=== PATIENT | male | born 1955 | race Caucasian/White ===

== ENCOUNTER 2017-10-22 12:18 | Emergency (ER) | payer OTHER ==
[~2017-10-22 12:18] MED LIST: ALF10 PO; AMI25 PO; ATE50 PO; ATEN50TA36 PO; ATOR40TA24 PO; CHOL10005 PO; DIPH-618 PO; DOCU100T13 PO; DULO60CA51 PO; DULO60CA56 PO; GABA-549 PO; GEM600 PO; IBUP600T22 PO; LAMO100T52 PO; LOR5 PO; LOR5/325 PO; LORA-630 PO; MELO-150 PO; METO-253 PO; MIRT-25 PO; MULT-820 PO; OMEG-23 PO; OMEP-137 PO; ONDA4TAB PO; OXYC5TAB38 PO; PAN40 PO; PRE50 PO; TRIA-102 PO; TRIA-20 PO; TRIA1CAP85 PO; [UNRECOGNIZED DRUG - CODE]
--- NOTE | 2017-10-22 12:35 | ER Report ---
History and Physical Time Seen By MD: 12:24 Hx. of Stated Complaint: PT LEAVING PHYSICAL THERAPY FELL BACKWARD AND HIT HEAD ON CURB, NO LOC HPI/ROS CHIEF COMPLAINT: Fall HISTORY OF PRESENT ILLNESS: His is a 61-year-old male who was in the parking lot of the hospital and fell down hitting the back of his head. 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 He had just put his walker in the back of his car stepped backwards and fell backwards hitting the back of his head. Patient denies loss of consciousness. Denies C-spine pain. Patient states he did get up by himself but a bystander did come and assist. One of the nursing staff from the cancer Center assisted him to the emergency department. Patient arrives alert and oriented, no chest pain or shortness of breath. Patient does have a headache and a large hematoma to the posterior scalp. No nausea or vomiting. REVIEW OF SYSTEMS: Constitutional: No fever, no chills. Eyes: No discharge. ENT: No sore throat. Cardiovascular: No chest pain, no palpitations. Respiratory: No cough, no shortness of breath. Gastrointestinal: No abdominal pain, no vomiting. Genitourinary: No hematuria. Musculoskeletal: No back pain. Skin: As above. Neurological: As above. Allergies: Coded Allergies: Penicillins (Verified Allergy, Mild, 07/06/16) Influenza Virus Vaccines (Verified Adverse Reaction, Unknown, GUINNE BARRE , 07/06/16) Home Meds Reported Medications Acetaminophen (TYLENOL EXTRA STRENGTH) 500 Mg Tablet, 500 MG PO, TAB 10/22/17 Metoprolol Tartrate (METOPROLOL TARTRATE) 50 Mg Tab, 1 TAB PO BID, TAB 07/06/16 Omeprazole (OMEPRAZOLE) 20 Mg Tablet.dr, 40 MG PO QDAY, TAB 07/06/16 Multivitamin (MULTIVITAMINS) 1 Each Tablet, 1 EACH PO 07/06/16 Mirtazapine (MIRTAZAPINE) 30 Mg Tablet, 30 MG PO HS 07/06/16 Lorazepam (LORAZEPAM) 0.5 Mg Tablet, 0.5 MG PO HS Y for PRN 07/06/16 Ibuprofen (IBUPROFEN) 600 Mg Tablet, 1 TAB PO Q6H, TAB 07/06/16 Triamterene/Hydrochlorothiazid (TRIAMTERENE-HCTZ 37.5-25 MG CP) 1 Each Capsule, 1 EACH PO DAILY, CAPSULE 07/06/16 Gabapentin (GABAPENTIN) 300 Mg Capsule, 300 MG PO Q8H, CAPSULE 07/06/16 Volcano-3 Fatty Acids/Fish Oil (FISH OIL 1,000 MG SOFTGEL) 1 Each Capsule, 1 EACH PO, CAPSULE 07/06/16 Docusate Sodium (DOCUSATE SODIUM) 100 Mg Tablet, 100 MG PO BID 07/06/16 Cholecalciferol (Vitamin D3) (VITAMIN D3) 1,000 Unit Tablet, 2000 UNIT PO DAILY , TAB 07/06/16 Atorvastatin Calcium (LIPITOR) 40 Mg Tablet, 2 TAB PO QDAY, TAB 07/06/16 Lamotrigine (LAMOTRIGINE) 100 Mg Tablet, 100 MG PO 02/18/14 Duloxetine Hcl (CYMBALTA) 60 Mg Capsule.dr, 30 MG PO BID, #10 CAP TAKE 1 CAPSULE BY MOUTH TWICE A DAY 02/18/14 Amitriptyline Hcl (Elavil) 25 Mg Tab, 50 MG PO QHS, 0 Refills 07/19/10 Discontinued Reported Medications Selenium Sulfide (Selenium Sulfide) 2.5 % Shampoo 07/06/16 Oxycodone Hcl (OXYCODONE HCL) 5 Mg Tablet, 5 MG PO Q4H Y for PRN 07/06/16 Diphenhydramine Hcl (DIPHENHYDRAMINE HCL) 25 Mg Tablet, 25 MG PO HS, TAB 07/06/16 Past Medical/Surgical History Patient has a past medical and surgical history of Gamber A, migraines, hypertension, hypercholesterolemia, sleep apnea, pneumonia, fibromyalgia, basal cell carcinoma, left foot surgery. Reviewed Nurses Notes: Yes Hx Smoking: No Smoking Status: Never Smoker Hx Substance Use Disorder: No Hx Alcohol Use: Yes (RARE) Constitutional Vital Sign - Last 24 Hours 10/22/17 10/22/17 10/22/17 10/22/17 12:18 12:23 12:25 12:33 Temp 97.8 Pulse ??? 110 ??? Resp 20 B/P (MAP) 126/105 (112) 126/105 Pulse Ox 94 O2 Delivery Room Air 10/22/17 10/22/17 12:38 12:48 Pulse ??? B/P (MAP) 140/118 (125) Physical Exam General Appearance: The patient is alert, has no immediate need for airway protection and no signs of toxicity. Eyes: Pupils equal and round no pallor or injection. ENT, Mouth: Mucous membranes are moist. Respiratory: There are no retractions, lungs are clear to auscultation. Cardiovascular: Regular rate and rhythm. Gastrointestinal: Abdomen is soft and non tender, no masses, bowel sounds normal. Neurological: Alert and oriented 4. Moving all extremities. No focal nerve deficits. Following all commands. Skin: Warm and dry, no rashes. Large hematoma to the posterior scalp. No abrasion or lacerations. No depressions, step-offs or obvious deformities to the skull. Musculoskeletal: Neck is supple non tender. No C-spine tenderness. Extremities are nontender, nonswollen and have full range of motion. DIFFERENTIAL DIAGNOSIS: After history and physical exam differential diagnosis was considered for head injury including but not limited to concussion, skull fracture, intraparenchymal contusion, subarachnoid, subdural and epidural hematoma. Medical Decision Making EKG/Imaging Imaging Location: [facility] - [place] Patient: Elvis Mukherjee : 1955 Visit/Account:[id number] [facility] Head without contrast and CT Cervical spine: Indication: Fall. Hematoma to the posterior scalp. Comparison: 72,014. Technique: CT head: Axial CT images were obtained through the brain from the skull base to the vertex without administration of IV contrast. Reformatted coronal and sagittal images were also obtained. Technique: CT cervical spine: Axial CT imaging of the cervical spine was performed. 2-D sagittal and coronal CT reformats were also obtained. One of the following dose optimization techniques was utilized in the performance of this exam: Automated exposure control; adjustment of the mA and/ or kV according to the patient's size; or use of an iterative reconstruction technique. Specific details can be referenced in the facility's radiology CT exam operational policy. FINDINGS: CT head: No intracranial bleed, midline shift, mass effect, extra-axial fluid collection or hydrocephalus. No abnormal density. Barron/white matter differentiation appears normal. Bony structures show no fractures or lesions. Subcutaneous hematoma seen in the posterior right scalp. Sinuses and mastoids visualized are clear. CT cervical spine: The vertebral bodies are aligned. No fracture or facet dislocation. No bony lesions. Mild diffuse osteopenia. There is diffuse mild/moderate degenerative changes including disc space narrowing, endplate changes, osteophytes and facet arthropathy. No bony canal stenosis. Bilateral neural foramina narrowing seen at multiple levels. No obvious disc herniation. Endplates are maintained. Prevertebral soft tissues and surrounding soft tissues are unremarkable. Lung apices are clear. IMPRESSION: 1. No acute intracranial abnormality. No fracture. Subcutaneous hematoma in the right posterior scalp. 2. No acute osseous or acute alignment abnormality of the cervical spine. Degenerative changes and osteopenia. Report Dictated By: Gray Mendez at 10/22/2017 1:13 PM Report E-Signed By: Gray Mendez at 10/22/2017 1:21 PM WSN:[id number] Location: [facility] [place] Patient: Elvis Mukherjee : 1955 Visit/Account:[id number] Date of Sevice: 10/22/2017 CT Head without contrast and CT Cervical spine: Indication: Fall. Hematoma to the posterior scalp. Comparison: 72,014. Technique: CT head: Axial CT images were obtained through the brain from the skull base to the vertex without administration of IV contrast. Reformatted coronal and sagittal images were also obtained. Technique: CT cervical spine: Axial CT imaging of the cervical spine was performed. 2-D sagittal and coronal CT reformats were also obtained. One of the following dose optimization techniques was utilized in the performance of this exam: Automated exposure control; adjustment of the mA and/ or kV according to the patient's size; or use of an iterative reconstruction technique. Specific details can be referenced in the facility's radiology CT exam operational policy. FINDINGS: CT head: No intracranial bleed, midline shift, mass effect, extra-axial fluid collection or hydrocephalus. No abnormal density. Barron/white matter differentiation appears normal. Bony structures show no fractures or lesions. Subcutaneous hematoma seen in the posterior right scalp. Sinuses and mastoids visualized are clear. CT cervical spine: The vertebral bodies are aligned. No fracture or facet dislocation. No bony lesions. Mild diffuse osteopenia. There is diffuse mild/moderate degenerative changes including disc space narrowing, endplate changes, osteophytes and facet arthropathy. No bony canal stenosis. Bilateral neural foramina narrowing seen at multiple levels. No obvious disc herniation. Endplates are maintained. Prevertebral soft tissues and surrounding soft tissues are unremarkable. Lung apices are clear. IMPRESSION: 1. No acute intracranial abnormality. No fracture. Subcutaneous hematoma in the right posterior scalp. 2. No acute osseous or acute alignment abnormality of the cervical spine. Degenerative changes and osteopenia. Report Dictated By: Gray Mendez at 10/22/2017 1:13 PM Report E-Signed By: Gray Mendez at 10/22/2017 1:21 PM WSN:[id number] ED Course/Re-evaluation ED Course The patient was admitted to a room. A history and physical was obtained. Differential diagnoses were considered. A CT of the head and cervical spine showing no acute intracranial hemorrhage or C-spine abnormalities. I did review these results with the patient. I did tell the patient with his large hematoma to avoid NSAIDs for the next several days and try to continue taking Tylenol as needed for the discomfort. Patient was also encouraged to return to the emergency department for any other concerns or worsening symptoms. Patient had no other questions or concerns at this time and was discharged home. Patient was agreeable with this plan of care. Decision to Disposition Date: Oct 22, 2017 Decision to Disposition Time: 13:33 Depart Departure Latest Vital Signs Vital Signs Date Time Temp Pulse Resp B/P (MAP) Pulse Ox O2 Delivery O2 Flow Rate FiO2 10/22/17 12:48 ??? 10/22/17 12:38 140/118 (125) 10/22/17 12:25 97.8 20 94 Room Air Impression: Primary Impression: Fall Additional Impressions: Hematoma of scalp Guillain-[place] Condition: Improved Disposition: HOME OR SELF-CARE Referrals: WADE SNOWDEN MD (PCP) Patient Instructions: Fall Prevention (ED), Guillain-[place] Syndrome (GEN), Hematoma (ED) Additional Instructions: Drink plenty of fluids. Get plenty of rest. Take medications as prescribed. Follow up with your PCP as needed. May return to the ED for any other concerns or worsening symptoms. Problem Qualifiers Primary Impression: Fall Encounter type: initial encounter Qualified Codes: W19.XXXA - Unspecified fall, initial encounter Additional Impressions: Hematoma of scalp Encounter type: initial encounter Qualified Codes: S00.03XA - Contusion of scalp, initial encounter EMIL DICKERSON-JULIETA Oct 22, 2017 12:35
[2017-10-22] MEDS ORDERED: ACET500T68 PO (12:36)
--- NOTE | 2017-10-22 13:26 | RADIOLOGY IMAGING REPORT ---
FACILITY: [facility] PATIENT NAME: Elvis Mukherjee : 1955 MR: [id number] V: [id number] EXAM DATE: ORDERING PHYSICIAN: EMIL DICKERSON TECHNOLOGIST: Location: [facility] [place] Patient: Elvis Mukherjee : 1955 Visit/Account:[id number] Date of Sevice: 10/22/2017 CT Head without contrast and CT Cervical spine: Indication: Fall. Hematoma to the posterior scalp. Comparison: 72,014. Technique: CT head: Axial CT images were obtained through the brain from the skull base to the verte x without administration of IV contrast. Reformatted coronal and sagittal images were also obtained. Technique: CT cervical spine: Axial CT imaging of the cervical spine was performed. 2-D sagittal and coronal CT reformats were also obtained. One of the following dose optimization techniques was utilized in the performance of this exam: Autom ated exposure control; adjustment of the mA and/or kV according to the patient's size; or use of an i terative reconstruction technique. Specific details can be referenced in the facility's radiology C T exam operational policy. FINDINGS: CT head: No intracranial bleed, midline shift, mass effect, extra-axial fluid collection or hydrocephalus. No abnormal density. Barron/white matter differentiation appears normal. Bony structures show no fractures or lesions. Subcutaneous hematoma seen in the posterior right scalp. Sinuses and mastoids visualized are clear. CT cervical spine: The vertebral bodies are aligned. No fracture or facet dislocation. No bony lesions. Mild diffuse ost eopenia. There is diffuse mild/moderate degenerative changes including disc space narrowing, endplate changes, osteophytes and facet arthropathy. No bony canal stenosis. Bilateral neural foramina narrow ing seen at multiple levels. No obvious disc herniation. Endplates are maintained. Prevertebral soft tissues and surrounding soft tissues are unremarkable. Lung apices are clear. IMPRESSION: 1. No acute intracranial abnormality. No fracture. Subcutaneous hematoma in the right posterior scalp . 2. No acute osseous or acute alignment abnormality of the cervical spine. Degenerative changes and os teopenia. Report Dictated By: Gray Mendez at 10/22/2017 1:13 PM Report E-Signed By: Gray Mendez at 10/22/2017 1:21 PM WSN:[id number]
--- NOTE | 2017-10-22 13:26 | RADIOLOGY IMAGING REPORT ---
FAC[place]: [facility] [place] PATIENT NAME: Elvis Mukherjee : 1955 MR: [id number] V: [id number] EXAM DATE: ORDERING PHYSICIAN: EMIL DICKERSON TECHNOLOGIST: Location: [facility] - [place], [place] Patient: Elvis Mukherjee : 1955 Visit/Account:[id number] Date of Sevice: 10/22/2017 CT Head without contrast and CT Cervical spine: Indication: Fall. Hematoma to the posterior scalp. Comparison: 72,014. Technique: CT head: Axial CT images were obtained through the brain from the skull base to the verte x without administration of IV contrast. Reformatted coronal and sagittal images were also obtained. Technique: CT cervical spine: Axial CT imaging of the cervical spine was performed. 2-D sagittal and coronal CT reformats were also obtained. One of the following dose optimization techniques was utilized in the performance of this exam: Autom ated exposure control; adjustment of the mA and/or kV according to the patient's size; or use of an i terative reconstruction technique. Specific details can be referenced in the facility's radiology C T exam operational policy. FINDINGS: CT head: No intracranial bleed, midline shift, mass effect, extra-axial fluid collection or hydrocephalus. No abnormal density. Barron/white matter differentiation appears normal. Bony structures show no fractures or lesions. Subcutaneous hematoma seen in the posterior right scalp. Sinuses and mastoids visualized are clear. CT cervical spine: The vertebral bodies are aligned. No fracture or facet dislocation. No bony lesions. Mild diffuse ost eopenia. There is diffuse mild/moderate degenerative changes including disc space narrowing, endplate changes, osteophytes and facet arthropathy. No bony canal stenosis. Bilateral neural foramina narrow ing seen at multiple levels. No obvious disc herniation. Endplates are maintained. Prevertebral soft tissues and surrounding soft tissues are unremarkable. Lung apices are clear. IMPRESSION: 1. No acute intracranial abnormality. No fracture. Subcutaneous hematoma in the right posterior scalp . 2. No acute osseous or acute alignment abnormality of the cervical spine. Degenerative changes and os teopenia. Report Dictated By: Gray Mendez at 10/22/2017 1:13 PM Report E-Signed By: Gray Mendez at 10/22/2017 1:21 PM WSN:[id number]
[2017-10-22 13:30] VITALS: BP 138/61
== END 2017-10-22 13:47 | disposition home or self-care (01) ==
LOC: ER 12:19
DX: S00.03XA Contusion of scalp, initial encounter (principal); W18.30XA Fall on same level, unspecified, initial encounter; G61.0 Guillain-Barre syndrome
CPT/HCPCS: 70450; 72125; 99282

== ENCOUNTER → 2017-11-13 | Outpatient (REF) | payer OTHER ==
[~2017-11-13] MED LIST changes: +ACET500T68 PO
[2017-11-13 12:34] LABS: PLATELET COUNT, AUTOMATED 252 K/uL (150-450)
== END ==
PROVIDERS: ATTEND Nurse Practitioner Family
DX: R07.9 Chest pain, unspecified (principal); R06.02 Shortness of breath
CPT/HCPCS: 82040; 82247; 82310; 82374; 82435; 82565; 82947; 84075; 84132; 84155; 84295; 84450; 84460; 84484; 84520; 85025; 85379

== ENCOUNTER 2018-02-25 17:34 | Emergency (ER) | payer OTHER ==
--- NOTE | 2018-02-25 17:40 | ER Report ---
History and Physical Time Seen By MD: 17:40 HPI/ROS CHIEF COMPLAINT: Shortness of breath, bilateral lower extremity edema, abdominal distention HISTORY OF PRESENT ILLNESS: Patient is a 62-year-old male here with 2 week complaint of lower extremity edema, progressive dyspnea, abdominal distention. Patient was at rehabilitation or physical therapy this morning when he developed worsening shortness breath prompting evaluation. Patient reports that he is on hydrochlorothiazide however his medication list does not include furosemide or Bumex. Patient is maintaining oxygen saturations on room air however does have moderate shortness of breath. Patient denies fevers, cough, headache, neck pain, chest pain, abdominal pain. REVIEW OF SYSTEMS: Constitutional: No fever, no chills. Eyes: No discharge. ENT: No sore throat. Cardiovascular: No chest pain, no palpitations. Respiratory: No cough, + shortness of breath. Gastrointestinal: No abdominal pain, no vomiting, + mild distension Genitourinary: No hematuria. Musculoskeletal: No back pain. Skin: No rashes. Neurological: No headache. Allergies: Coded Allergies: Penicillins (Verified Allergy, Mild, 02/25/18) Influenza Virus Vaccines (Verified Adverse Reaction, Unknown, GUINNE BARRE , 02/25/18) Home Meds Active Scripts Tramadol Hcl (TRAMADOL HCL) 50 Mg Tablet, 50 MG PO Q6H Y for PAIN, #12 TAB 0 Refills Prov:TONY TRUJILLO DO 02/25/18 Furosemide (LASIX) 20 Mg Tablet, 1 TAB PO Q8H for 5 Days, #15 TAB Prov:TONY TRUJILLO DO 02/25/18 Reported Medications Acetaminophen (TYLENOL EXTRA STRENGTH) 500 Mg Tablet, 500 MG PO, TAB 10/22/17 Metoprolol Tartrate (METOPROLOL TARTRATE) 50 Mg Tab, 1 TAB PO BID, TAB 07/06/16 Omeprazole (OMEPRAZOLE) 20 Mg Tablet.dr, 40 MG PO QDAY, TAB 07/06/16 Multivitamin (MULTIVITAMINS) 1 Each Tablet, 1 EACH PO 07/06/16 Mirtazapine (MIRTAZAPINE) 30 Mg Tablet, 30 MG PO HS 07/06/16 Lorazepam (LORAZEPAM) 0.5 Mg Tablet, 0.5 MG PO HS Y for PRN 07/06/16 Ibuprofen (IBUPROFEN) 600 Mg Tablet, 1 TAB PO Q6H, TAB 07/06/16 Triamterene/Hydrochlorothiazid (TRIAMTERENE-HCTZ 37.5-25 MG CP) 1 Each Capsule, 1 EACH PO DAILY, CAPSULE 07/06/16 Gabapentin (GABAPENTIN) 300 Mg Capsule, 300 MG PO Q8H, CAPSULE 07/06/16 Renick-3 Fatty Acids/Fish Oil (FISH OIL 1,000 MG SOFTGEL) 1 Each Capsule, 1 EACH PO, CAPSULE 07/06/16 Docusate Sodium (DOCUSATE SODIUM) 100 Mg Tablet, 100 MG PO BID 07/06/16 Cholecalciferol (Vitamin D3) (VITAMIN D3) 1,000 Unit Tablet, 2000 UNIT PO DAILY , TAB 07/06/16 Atorvastatin Calcium (LIPITOR) 40 Mg Tablet, 2 TAB PO QDAY, TAB 07/06/16 Lamotrigine (LAMOTRIGINE) 100 Mg Tablet, 100 MG PO 02/18/14 Duloxetine Hcl (CYMBALTA) 60 Mg Capsule.dr, 30 MG PO BID, #10 CAP TAKE 1 CAPSULE BY MOUTH TWICE A DAY 02/18/14 Amitriptyline Hcl (Elavil) 25 Mg Tab, 50 MG PO QHS, 0 Refills 07/19/10 Hx Smoking: No Smoking Status: Never Smoker Hx Substance Use Disorder: No Hx Alcohol Use: Yes (RARE) Constitutional Vital Sign - Last 24 Hours 02/25/18 02/25/18 02/25/18 02/25/18 17:42 17:57 17:58 18:02 Temp 99.0 Pulse 92 93 Resp 16 18 B/P (MAP) 114/79 (91) 114/79 104/67 (79) Pulse Ox 92 O2 Delivery Room Air 02/25/18 02/25/18 02/25/18 02/25/18 18:02 18:04 18:06 18:30 Pulse 90 93 Resp 9 18 B/P (MAP) 125/79 (94) Pulse Ox 91 99 O2 Delivery Room Air 02/25/18 02/25/18 02/25/18 02/25/18 18:34 19:00 19:04 19:09 Pulse 88 120 91 Resp 5 39 27 B/P (MAP) 126/112 (117) Pulse Ox 89 82 92 02/25/18 02/25/18 02/25/18 19:30 20:00 20:09 Pulse 90 B/P (MAP) 130/87 (101) 120/83 (95) Pulse Ox 86 Physical Exam General Appearance: The patient is alert, has no immediate need for airway protection and no signs of toxicity. NAD Eyes: Pupils equal and round no pallor or injection. ENT, Mouth: Mucous membranes are moist. Respiratory: There are no retractions,+ diminished at bases Cardiovascular: Regular rate and rhythm. Gastrointestinal: Abdomen is soft and non tender, no masses, bowel sounds normal. Neurological: No focal neuro deficits Skin: Warm and dry, no rashes. Musculoskeletal: Neck is supple non tender. Extremities are + b/l tender, + b/l swollen and have full range of motion. DIFFERENTIAL DIAGNOSIS: After history and physical exam differential diagnosis was considered for CHF exacerbation, infection, pneumonia, altitude sickness Medical Decision Making Data Points Result Diagram: 02/25/18 1800 02/25/18 1800 Laboratory Hematology Test 02/25/18 18:00 02/25/18 19:20 Red Blood Count 4.33 M/uL (4.00-5.60) Mean Corpuscular Volume 95.0 fL (80.0-96.0) Mean Corpuscular Hemoglobin 33.5 pg (26.0-33.0) Mean Corpuscular Hemoglobin Concent 35.2 g/dL (32.0-36.0) Red Cell Distribution Width 13.9 % (11.5-14.5) Mean Platelet Volume 8.7 fL (7.2-11.1) Neutrophils (%) (Auto) 64.2 % (39.4-72.5) Lymphocytes (%) (Auto) 25.8 % (17.6-49.6) Monocytes (%) (Auto) 8.2 % (4.1-12.4) Eosinophils (%) (Auto) 1.3 % (0.4-6.7) Basophils (%) (Auto) 0.5 % (0.3-1.4) Nucleated RBC Relative Count (auto) 0.1 /100WBC Neutrophils # (Auto) 6.9 K/uL (2.0-7.4) Lymphocytes # (Auto) 2.8 K/uL (1.3-3.6) Monocytes # (Auto) 0.9 K/uL (0.3-1.0) Eosinophils # (Auto) 0.1 K/uL (0.0-0.5) Basophils # (Auto) 0.1 K/uL (0.0-0.1) Nucleated RBC Absolute Count (auto) 0.01 K/uL Sodium Level 141 mmol/L (137-145) Potassium Level 4.2 mmol/L (3.5-5.0) Chloride Level 102 mmol/L (98-107) Carbon Dioxide Level 26 mmol/L (22-30) Blood Urea Nitrogen 20 mg/dl (9-21) Creatinine 0.80 mg/dl (0.66-1.25) Glomerular Filtration Rate Calc > 60.0 Random Glucose 140 mg/dl (75-110) Calcium Level 9.9 mg/dl (8.4-10.2) Total Bilirubin 0.6 mg/dl (0.2-1.3) Aspartate Amino Transf (AST/SGOT) 58 U/L (0-35) Alanine Aminotransferase (ALT/SGPT) 36 U/L (0-56) Alkaline Phosphatase 121 U/L (0-126) Troponin I < 0.012 ng/ml B-Type Natriuretic Peptide 240 pg/ml (0-100) Total Protein 8.0 g/dl (6.3-8.2) Albumin 4.6 g/dl (3.5-5.0) Lipase 91 U/L (23-300) Urine Color Straw Urine Clarity Clear Urine pH 7.0 pH (4.8-9.5) Urine Specific [place] 1.009 Urine Protein Negative mg/dL (NEGATIVE) Urine Glucose (UA) Negative mg/dL (NEGATIVE) Urine Ketones Negative mg/dL (NEGATIVE) Urine Blood Negative (NEGATIVE) Urine Nitrite Negative (NEGATIVE) Urine Bilirubin Negative (NEGATIVE) Urine Urobilinogen Negative mg/dL (0.2-1.9) Urine Leukocyte Esterase Negative (NEGATIVE) Urine RBC None /HPF (0-2/HPF) Urine WBC None /HPF (0-5/HPF) Urine Squamous Epithelial Cells Few /LPF (</=FEW) Urine Bacteria Negative /HPF (NONE-FEW) Urine Mucus None /HPF (NONE-FEW) Chemistry Test 02/25/18 18:00 02/25/18 19:20 White Blood Count 10.7 k/uL (4.5-11.0) Red Blood Count 4.33 M/uL (4.00-5.60) Hemoglobin 14.5 g/dL (14.0-18.0) Hematocrit 41.1 % (42.0-52.0) Mean Corpuscular Volume 95.0 fL (80.0-96.0) Mean Corpuscular Hemoglobin 33.5 pg (26.0-33.0) Mean Corpuscular Hemoglobin Concent 35.2 g/dL (32.0-36.0) Red Cell Distribution Width 13.9 % (11.5-14.5) Platelet Count 308 K/uL (150-450) Mean Platelet Volume 8.7 fL (7.2-11.1) Neutrophils (%) (Auto) 64.2 % (39.4-72.5) Lymphocytes (%) (Auto) 25.8 % (17.6-49.6) Monocytes (%) (Auto) 8.2 % (4.1-12.4) Eosinophils (%) (Auto) 1.3 % (0.4-6.7) Basophils (%) (Auto) 0.5 % (0.3-1.4) Nucleated RBC Relative Count (auto) 0.1 /100WBC Neutrophils # (Auto) 6.9 K/uL (2.0-7.4) Lymphocytes # (Auto) 2.8 K/uL (1.3-3.6) Monocytes # (Auto) 0.9 K/uL (0.3-1.0) Eosinophils # (Auto) 0.1 K/uL (0.0-0.5) Basophils # (Auto) 0.1 K/uL (0.0-0.1) Nucleated RBC Absolute Count (auto) 0.01 K/uL Glomerular Filtration Rate Calc > 60.0 Calcium Level 9.9 mg/dl (8.4-10.2) Total Bilirubin 0.6 mg/dl (0.2-1.3) Aspartate Amino Transf (AST/SGOT) 58 U/L (0-35) Alanine Aminotransferase (ALT/SGPT) 36 U/L (0-56) Alkaline Phosphatase 121 U/L (0-126) Troponin I < 0.012 ng/ml B-Type Natriuretic Peptide 240 pg/ml (0-100) Total Protein 8.0 g/dl (6.3-8.2) Albumin 4.6 g/dl (3.5-5.0) Lipase 91 U/L (23-300) Urine Color Straw Urine Clarity Clear Urine pH 7.0 pH (4.8-9.5) Urine Specific [place] 1.009 Urine Protein Negative mg/dL (NEGATIVE) Urine Glucose (UA) Negative mg/dL (NEGATIVE) Urine Ketones Negative mg/dL (NEGATIVE) Urine Blood Negative (NEGATIVE) Urine Nitrite Negative (NEGATIVE) Urine Bilirubin Negative (NEGATIVE) Urine Urobilinogen Negative mg/dL (0.2-1.9) Urine Leukocyte Esterase Negative (NEGATIVE) Urine RBC None /HPF (0-2/HPF) Urine WBC None /HPF (0-5/HPF) Urine Squamous Epithelial Cells Few /LPF (</=FEW) Urine Bacteria Negative /HPF (NONE-FEW) Urine Mucus None /HPF (NONE-FEW) Urinalysis Test 02/25/18 19:20 Urine Color Straw Urine Clarity Clear Urine pH 7.0 pH (4.8-9.5) Urine Specific [place] 1.009 Urine Protein Negative mg/dL (NEGATIVE) Urine Glucose (UA) Negative mg/dL (NEGATIVE) Urine Ketones Negative mg/dL (NEGATIVE) Urine Blood Negative (NEGATIVE) Urine Nitrite Negative (NEGATIVE) Urine Bilirubin Negative (NEGATIVE) Urine Urobilinogen Negative mg/dL (0.2-1.9) Urine Leukocyte Esterase Negative (NEGATIVE) Urine RBC None /HPF (0-2/HPF) Urine WBC None /HPF (0-5/HPF) Urine Squamous Epithelial Cells Few /LPF (</=FEW) Urine Bacteria Negative /HPF (NONE-FEW) Urine Mucus None /HPF (NONE-FEW) ED Course/Re-evaluation ED Course Patient is a 62-year-old male who complains of lower extremity edema, progressive dyspnea for the past couple weeks. Patient became more short of breath today and describes some orthopnea. Chest x-ray showed no acute findings , KUB showed moderate stool burden without obstruction. Hewas given Lasix and DuoNeb with moderate relief. Troponin was negative. Labs were unremarkable. I discussed the findings with the patient and he noted that he would prefer to be treated at home if possible. Based on his clinical presentation, his response to medications and I determine that outpatient treatment would be acceptable. He is given Lasix for the next several days to caleb and he was advised to follow up promptly with his PCP and return promptly if he develops worsening swelling, shortness breath, chest pain abdominal pain, fevers or chills. Decision to Disposition Date: Feb 25, 2018 Decision to Disposition Time: 20:20 Depart Departure Latest Vital Signs Vital Signs Date Time Temp Pulse Resp B/P (MAP) Pulse Ox O2 Delivery O2 Flow Rate FiO2 02/25/18 20:09 90 86 02/25/18 20:00 120/83 (95) 02/25/18 19:09 27 02/25/18 18:02 Room Air 02/25/18 17:57 99.0 Impression: Primary Impression: CHF exacerbation Condition: Improved Disposition: HOME OR SELF-CARE New Scripts Tramadol Hcl (TRAMADOL HCL) 50 Mg Tablet 50 MG PO Q6H Y for PAIN, #12 TAB 0 Refills Prov: TONY TRUJILLO DO 02/25/18 Furosemide (LASIX) 20 Mg Tablet 1 TAB PO Q8H for 5 Days, #15 TAB Prov: TONY TRUJILLO DO 02/25/18 Patient Instructions: Dyspnea (ED) Additional Instructions: Please take one tablet of Lasix 3 times a day for 5 days.You may take 1 tablet of tramadol every 6-8 hours as needed for pain. Please follow up with your family doctor in the next 3 days for follow-up care please return if you develop worsening pain fevers, chest pain, shortness of breath, edema. TONY TRUJILLO DO Feb 25, 2018 17:41
[2018-02-25] MEDS ORDERED: fentaNYL CITR 100 MCG/2 ML AMP IVP ONE (17:50)
[2018-02-25] MEDS ORDERED: ONDANSETRON 4 MG/2 ML VIAL IVP ONE (17:50)
[2018-02-25] MEDS ORDERED: ALBUTEROL/IPRATROPIUM 3 ML NEB NEB ONE (17:50)
--- NOTE | 2018-02-25 18:14 | EKG ---
FACILITY: [facility] PATIENT NAME: CHANDRAKANT ATKINSON : [id number] MR: [id number] V: [id number] EXAM DATE: ORDERING PHYSICIAN: TONY TRUJILLO TECHNOLOGIST: [place] Test Reason : SOB, CP Blood Pressure : / mmHG Vent. Rate : 095 BPM Atrial Rate : 300 BPM P-R Int : 000 ms QRS Dur : 092 ms QT Int : 368 ms P-R-T Axes : 000 057 -20 degrees QTc Int : 462 ms Atrial flutter Abnormal QRS-T angle, consider primary T wave abnormality Prolonged QT Abnormal ECG When compared with ECG of 06-JUL-2016 08:20, ST no longer depressed in Anterolateral leads Nonspecific T wave abnormality has replaced inverted T waves in Inferior leads T wave inversion no longer evident in Lateral leads Confirmed by ADALI INFANTE ([id number]) on 02/26/2018 6:24:31 AM Referred By: RICARDA Confirmed By:ADALI INFANTE
[2018-02-25 18:24] LABS: PLATELET COUNT, AUTOMATED 308 K/uL (150-450)
[2018-02-25] MEDS ORDERED: FUROSEMIDE 40 MG/4 ML VIAL IVP ONE ×2 (18:40→19:20)
--- NOTE | 2018-02-25 18:56 | RADIOLOGY IMAGING REPORT ---
FACILITY: [facility] - [place] PATIENT NAME: Elvis Mukherjee : 1955 MR: [id number] V: [id number] EXAM DATE: ORDERING PHYSICIAN: TONY TRUJILLO TECHNOLOGIST: [place] [facility] [place]: Elvis Mukherjee : 1955 Visit/Account:[id number] Date of Sevice: 02/25/2018 2 VIEWS CHEST INDICATION: Shortness of breath. COMPARISON: 07/06/2016. FINDINGS: Cardiomediastinal silhouette and pulmonary vessels within normal limits. There is no focal infiltrate or lobar consolidation. There is no pneumothorax or pleural effusion. No nodule. Mild chronic interstitial changes. Upper abdomen is unremarkable. No acute bony abnormality. IMPRESSION: 1. No acute cardiopulmonary process. Report Dictated By: Gray Mendez at 02/25/2018 6:51 PM Report E-Signed By: Gray Mendez at 02/25/2018 6:53 PM WSN:[id number]
[2018-02-25 20:00] VITALS: BP 120/83
[2018-02-25] MEDS ORDERED: FURO20TA19 PO (20:09)
[2018-02-25] MEDS ORDERED: TRAM-420 PO (20:09)
--- NOTE | 2018-02-25 20:18 | RADIOLOGY IMAGING REPORT ---
FACILITY: [facility] PATIENT NAME: Elvis Mukherjee : 1955 MR: [id number] V: [id number] EXAM DATE: ORDERING PHYSICIAN: TONY TRUJILLO TECHNOLOGIST: Location: [facility] - [place] Patient: Elvis Mukherjee : 1955 Visit/Account:[id number] Date of Sevice: 02/25/2018 KUB SINGLE VIEW ABDOMEN HISTORY: Abdominal pain, chronic. COMPARISON: 02/18/2014. FINDINGS: 2 supine views of the abdomen were obtained. Distrubution of bowel gas is normal with bowel in all four quadrants as well as centrally. There is m oderate stool throughout the colon. No dilated bowel loops. No free air. There are pelvic phleboliths . The sacroiliac joints are patent without widening. There is no pubic diastases. There is mild degener ative change of the spine. IMPRESSION: 1. Moderate stool burden without obstruction. Report Dictated By: Tia Pacheco at 02/25/2018 8:12 PM Report E-Signed By: Tia Pacheco at 02/25/2018 8:15 PM WSN:[id number]
== END 2018-02-25 20:32 | disposition home or self-care (01) ==
LOC: ER 17:41
DX: I50.9 Heart failure, unspecified (principal)
CPT/HCPCS: 71046; 74018; 81001; 83690; 83880; 84484; 85025; 93005; 94640; 96374; 96375; 96376; 99284; J1940; J2405; J7620; 82040; 82247; 82310; 82374; 82435; 82565; 82947; 84075; 84132; 84155; 84295; 84450; 84460; 84520

== ENCOUNTER 2018-10-17 09:50 | Outpatient (RCR) | payer OTHER ==
--- NOTE | 2018-08-31 16:22 | PT INITIAL EVALUATION ---
MEDICAL DIAGNOSIS: low back pain, right hip pain TREATMENT DIAGNOSIS: same DATE OF ONSET: 08/31/17 SUBJECTIVE: Elvis Mukherjee presents to physical therapy with complaints of low back pain and R hip pain that started approximately one year ago. He reports that the pain limits him from standing longer than 6 minutes and walking less than 11 minutes. He reports that he would like to decrease the low back pain along with the R hip pain so that he can stand longer to perform the dishes at home and being able to stand up longer so that he can walk further as well. 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 He rates the low back pain with radiating pain down his R LE to be 5-6/10 from his low back to R knee and states that his 7/10 pain from his R knee to R foot. He reports that the pain is worse with sitting, standing, walking, and lying. He reports that nothing makes the pain feel better. He reports that he has had recent xrays along with night pain. He denies any unexplained weight loss. He denies any recent surgical interventions. He reports that he had two falls in July 2018 without any injuries. He reports that the pain does not change with sitting in a slumped posture or sitting in an upright posture. Pain location is LBP: L4-5 central with radiating pain down the R LE and described as . Pain scale is 7 on a ten point pain scale. REHAB PROBLEM LIST: Increased Pain Decreased ROM Decreased Strength Impaired Transfers Decreased Endurance Decreased Balance Decreased Function Decreased Mobility Decreased Gait PREVIOUS MEDICAL HISTORY: See EMR OCCUPATION: Retired from OBJECTIVE: Posture: He demonstrated forward head, B rounded shoulders, increased lumbar lordosis. ROM: Trunk AROM: flexion: NIL with muscular end range, extension: moderate decreased with muscular end feel, R sidegliding: moderate restriction with painful end feel. L side gliding: NIL with muscular end feel. Palpation: TTP: LBP: L4-5 central with radiating pain down the R LE Sensation: Decreased B L2-S2 Special Tests: Repeated flexion: increased pain during and increased pain following resulting in making the low back pain along with the radiating pain worse. Repeated extension: increased pain during and increased pain following resulting in making the low back pain along with the radiating pain worse. R trunk rotation: increased pain during the test with centralizing low back pain and less pain and increased AROM following the examination. Mobility: Modified Independent Gait: With AD, he demonstrated the following gait mechanics: forward trunk lean, increased lumbar lordosis, increased base of support, decreased B step lengths, decreased B step clearance, decreased B hip flexion, B knee flexion, and B ankle DF and PF, and no LOB throughout the session. Balance: Will test in the future ASSESSMENT: Elvis will benefit from skilled physical therapy to address the listed impairments to improve function and QOL. His initial classification is going to be anterior lateral that was centralizing with his specific exercise. He is independent with his specific exercise. Short Term Goals 2 weeks: Pt will demonstrate directional preference and demonstrate to improve function and QOL. 4 weeks: Pt will demonstrate centralized low back pain to improve function and QOL. 6 weeks: Pt will demonstrate abolished low back and return to prior level of function to improve function and QOL. Patient's Goals reduce low back pain so that he can stand up nice and tall for longer periods of than he can perform right now PLAN: Patient to be seen for Manual Therapy/STM/MET Strengthening/condition Ice/Heat Range of Motion Spinal Stabilization Work Hardening/Cond Stretching Iontophoresis Neuromuscular Re-ed Closed Chain Program Electrical Stim Posture/Body mechanics Gait Trg/Balance Trg Home Exercise Program Therapeutic Activities 2x/Week for 6 Weeks If you have any questions, comments, or concerns about this report or plan, please contact me at . Thank you, Kulwant Ng, PT, DPT MTDD
--- NOTE | 2018-10-10 15:38 | PT PLAN OF CARE ---
Physician: Jenny Duggan, CRADLE PLACER- Patient is being seen: 2x/week Therapist: Kulwant Ng, PT, DPT Medical Diagnosis: low back pain, right hip pain Treatment Diagnosis: same Date of Onset: 08/31/17 Date of Initial Evaluation: 08/31/18 Date patient was last seen: 10/10/18 Number of treatments: 10 Number of cancellations/No shows: 1 INTERVENTIONS: Manual Therapy/STM/MET Strengthening/condition Ice/Heat Range of Motion Spinal Stabilization Work Hardening/Cond Stretching Iontophoresis Neuromuscular Re-ed Closed Chain Program Electrical Stim Posture/Body mechanics Gait Trg/Balance Trg Home Exercise Program Therapeutic Activities GOALS: 2 weeks: Pt will demonstrate directional preference and demonstrate to improve function and QOL. MET 4 weeks: Pt will demonstrate centralized low back pain to improve function and QOL. MET 6 weeks: Pt will demonstrate abolished low back and return to prior level of function to improve function and QOL. Not Met PATIENT'S GOAL: reduce low back pain so that he can stand up nice and tall for longer periods of than he can perform right now Status of Patient's Goals: Progressing Patient Compliance: Good Prognosis: Good Reasons for continuing therapy: This is a progress note for Elvis Mukherjee. He reports that he has been performing his home exercises with positive results. He denies any R sided. He reports that his pain is centralized in his low back and usually comes on with prolonged standing. Furthermore, he reports that he has been more aware of his sitting and standing posture, which he feels has decreased some overall low back pain. He continues to demonstrate directional preference with extension as it has abolished his R sided pain and continues to increase with upright posture during standing endurance. He continues to be independent with his [facility]. We will see him two more sessions and then discharge to [facility]. Posture: He demonstrated forward head, B rounded shoulders, increased lumbar lordosis. ROM: Trunk AROM: flexion: NIL with muscular end range, extension: minimal decreased with muscular end feel, R sidegliding: minimal restriction with painful end feel. L side gliding: NIL with muscular end feel. Strength: Palpation: TTP: LBP: L4-5 centra Mobility: Modified Independent If you have any questions, please contact me at [phone]. Thank you, Kulwant Ng, PT, DPT [facility]
[~2018-10-17 09:50] MED LIST changes: +FURO20TA19 PO; +TRAM-420 PO
--- NOTE | 2018-10-18 18:12 | PT PLAN OF CARE ---
Physician: MALGORZATA KruegerP- Patient is being seen: 2x/week Therapist: Kulwant Ng, PT, DP T Medical Diagnosis: low back pain, right hip pain Treatment Diagnosis: same Date of Onset: 08/31/17 Date of Initial Evaluation: 08/31/18 Date patient was last seen: 10/17/18 Number of treatments: 12 Number of cancellations/No shows: 1 INTERVENTIONS: Manual Therapy/STM/MET Strengthening/condition Ice/Heat Range of Motion Spinal Stabilization Work Hardening/Cond Stretching Iontophoresis Neuromuscular Re-ed Closed Chain Program Electrical Stim Posture/Body mechanics Gait Trg/Balance Trg Home Exercise Program Therapeutic Activities GOALS: 2 weeks: Pt will demonstrate directional preference and demonstrate to improve function and QOL. MET 4 weeks: Pt will demonstrate centralized low back pain to improve function and QOL. MET 6 weeks: Pt will demonstrate abolished low back and return to prior level of function to improve function and QOL. Not Met PATIENT'S GOAL: reduce low back pain so that he can stand up nice and tall for longer periods of than he can perform right now Status of Patient's Goals: Progressing Patient Compliance: Good Prognosis: Good Reasons for continuing therapy: This is a discharge note for Elvis Mukherjee. He reports that he has been performing his home exercises with positive results. He denies any R sided. He reports that his pain is centralized in his low back and usually comes on with prolonged standing. He reports that he is doing well. He reports that if he feels lumbar pain it is centralized, which is an improvement from the R sided low back pain that he originally was feeling. Today, he denies any pain. He states that he starts to feel the centralized pain if he bends forward too long while during dishes or cooks. He continues to demonstrate directional preference with extension. He continues to be independent with his exercises and with his posture re-education. He demonstrated increased endurance with standing balance along with standing with excellent posture. He is independent with how to prevent reoccurrence and with all of his core and B LE's. As a result, he will be discharged from PT to [facility]. Posture: He demonstrated forward head, B rounded shoulders, increased lumbar lordosis. ROM: Trunk AROM: flexion: NIL with muscular end range, extension: minimal decreased with muscular end feel, R sidegliding: minimal restriction with painful end feel. L side gliding: NIL with muscular end feel. Palpation: TTP: LBP: L4-5 central Mobility: Modified Independent If you have any questions, please contact me at [phone]. Thank you, Kulwant Ng PT, DPT MALIKD
== END 2018-10-17 18:00 | disposition home or self-care (01) ==
LOC: PT 09:50
PROVIDERS: ATTEND Nurse Practitioner Family
DX: M54.5 Low back pain (principal); M25.551 Pain in right hip
CPT/HCPCS: 97161

== ENCOUNTER 2019-04-03 10:26 | Emergency (ER) | payer OTHER ==
[~2019-04-03 10:26] MED LIST changes: -POTA99TA6 PO
--- NOTE | 2019-04-03 10:32 | ER Report ---
History and Physical Time Seen By MD: 10:28 HPI/ROS 63-year-old male with history of afib s/p ablation, CHF who presents with worsening shortness of breath and worsening LE edema. Patient states that over the last several weeks he has had worsening shortness of breath. He is normally on 2 L of nasal cannula at baseline. He endorses dyspnea on exertion and orthopnea. He states he has been compliant with his Lasix. He has some uncomfortable sensation in his chest but denies any pain, diaphoresis, nausea, vomiting, syncope. Denies any recent fevers or chills. Has a chronic nonproductive cough with no change recently. A complete review of systems was conducted and is otherwise negative except as noted in the history of present illness Remainder of the 14 system rev: Yes Allergies: Coded Allergies: Penicillins (Verified Allergy, Mild, 04/03/19) Influenza Virus Vaccines (Verified Adverse Reaction, Unknown, CHRISTINE BLAKELY, 04/03/19) Home Meds Active Scripts Tramadol Hcl (TRAMADOL HCL) 50 Mg Tablet, 50 MG PO Q6H PRN for PAIN, #12 TAB 0 Refills Prov:TONY TRUJILLO DO 02/25/18 Furosemide (LASIX) 20 Mg Tablet, 1 TAB PO Q8H for 5 Days, #15 TAB Prov:TONY TRUJILLO DO 02/25/18 Reported Medications Potassium Gluconate (POTASSIUM) 99 Mg Tablet, 99 MG PO 04/03/19 Acetaminophen (TYLENOL EXTRA STRENGTH) 500 Mg Tablet, 500 MG PO, TAB 10/22/17 Metoprolol Tartrate (METOPROLOL TARTRATE) 50 Mg Tab, 1 TAB PO BID, TAB 07/06/16 Omeprazole (OMEPRAZOLE) 20 Mg Tablet.dr, 40 MG PO QDAY, TAB 07/06/16 Multivitamin (MULTIVITAMINS) 1 Each Tablet, 1 EACH PO 07/06/16 Mirtazapine (MIRTAZAPINE) 30 Mg Tablet, 30 MG PO HS 07/06/16 Lorazepam (LORAZEPAM) 0.5 Mg Tablet, 0.5 MG PO HS PRN for PRN 07/06/16 Ibuprofen (IBUPROFEN) 600 Mg Tablet, 1 TAB PO Q6H, TAB 07/06/16 Triamterene/Hydrochlorothiazid (TRIAMTERENE-HCTZ 37.5-25 MG CP) 1 Each Capsule, 1 EACH PO DAILY, CAPSULE 07/06/16 Gabapentin (GABAPENTIN) 300 Mg Capsule, 300 MG PO Q8H, CAPSULE 07/06/16 Mills-3 Fatty Acids/Fish Oil (FISH OIL 1,000 MG SOFTGEL) 1 Each Capsule, 1 EACH PO, CAPSULE 07/06/16 Docusate Sodium (DOCUSATE SODIUM) 100 Mg Tablet, 100 MG PO BID 07/06/16 Cholecalciferol (Vitamin D3) (VITAMIN D3) 1,000 Unit Tablet, 2000 UNIT PO DAILY, TAB 07/06/16 Atorvastatin Calcium (LIPITOR) 40 Mg Tablet, 2 TAB PO QDAY, TAB 07/06/16 Lamotrigine (LAMOTRIGINE) 100 Mg Tablet, 100 MG PO 02/18/14 Duloxetine Hcl (CYMBALTA) 60 Mg Capsule.dr, 30 MG PO BID, #10 CAP TAKE 1 CAPSULE BY MOUTH TWICE A DAY 02/18/14 Amitriptyline Hcl (Elavil) 25 Mg Tab, 50 MG PO QHS, 0 Refills 07/19/10 Reviewed Nurses Notes: Yes Old Medical Records Reviewed: Yes Hx Smoking: No Smoking Status: Never Smoker Hx Substance Use Disorder: No Hx Alcohol Use: Yes (RARE) Constitutional Vital Sign - Last 24 Hours 04/03/19 04/03/19 04/03/19 04/03/19 10:26 10:27 10:30 10:30 Temp 97.9 Pulse ??? 108 Resp 24 B/P (MAP) 137/94 (108) 128/78 (95) 137/94 Pulse Ox 88 O2 Delivery Room Air 04/03/19 04/03/19 04/03/19 04/03/19 10:42 10:56 11:00 11:26 Pulse 93 92 Resp 22 18 B/P (MAP) 123/77 (92) Pulse Ox 90 92 O2 Flow Rate 2.0 04/03/19 04/03/19 04/03/19 04/03/19 11:30 11:35 12:00 12:05 Pulse 90 109 Resp 23 27 B/P (MAP) 124/87 (99) 120/84 (96) Pulse Ox 90 88 04/03/19 04/03/19 04/03/19 04/03/19 12:30 12:35 13:00 13:05 Pulse 87 87 Resp 22 22 B/P (MAP) 124/87 (99) 134/103 (113) Pulse Ox 91 92 04/03/19 04/03/19 04/03/19 04/03/19 13:10 13:30 13:40 14:00 Pulse 89 89 Resp 16 20 B/P (MAP) 109/107 (108) 126/93 (104) Pulse Ox 89 91 04/03/19 14:10 Pulse 86 Resp 17 Pulse Ox 93 Physical Exam General Appearance: No acute distress Eyes: Pupils equal and round no pallor or injection. ENT, Mouth: Mucous membranes are moist. JVD up to the ear lobule bilaterally. Respiratory: Bibasilar rales; no significant respiratory distress; no wheezing appreciated Cardiovascular: Regular rate with irregular rhythm Gastrointestinal: Mildly distended; nontender to palpation. No rebound or guarding Neurological: No focal deficits appreciated Skin: 2+ bilateral lower extremity edema Musculoskeletal: Decreased bilateral lower sensation secondary to peripheral neuropathy. Medical Decision Making Data Points Result Diagram: 04/03/19 1030 04/03/19 1030 Laboratory Hematology Test 04/03/19 10:30 White Blood Count 10.3 k/uL (4.5-11.0) Red Blood Count 4.08 M/uL (4.00-5.60) Hemoglobin 13.7 g/dL (14.0-18.0) L Hematocrit 38.7 % (42.0-52.0) L Mean Corpuscular Volume 94.9 fL (80.0-96.0) Mean Corpuscular Hemoglobin 33.5 pg (26.0-33.0) H Mean Corpuscular Hemoglobin Concent 35.3 g/dL (32.0-36.0) Red Cell Distribution Width 13.9 % (11.5-14.5) Platelet Count 328 K/uL (150-450) Mean Platelet Volume 8.4 fL (7.2-11.1) Neutrophils (%) (Auto) 73.8 % (39.4-72.5) H Lymphocytes (%) (Auto) 17.4 % (17.6-49.6) L Monocytes (%) (Auto) 7.3 % (4.1-12.4) Eosinophils (%) (Auto) 1.0 % (0.4-6.7) Basophils (%) (Auto) 0.5 % (0.3-1.4) Nucleated RBC Relative Count (auto) 0.1 /100WBC Neutrophils # (Auto) 7.6 K/uL (2.0-7.4) H Lymphocytes # (Auto) 1.8 K/uL (1.3-3.6) Monocytes # (Auto) 0.7 K/uL (0.3-1.0) Eosinophils # (Auto) 0.1 K/uL (0.0-0.5) Basophils # (Auto) 0.0 K/uL (0.0-0.1) Nucleated RBC Absolute Count (auto) 0.01 K/uL Chemistry Test 04/03/19 10:30 Sodium Level 141 mmol/L (137-145) Potassium Level 4.1 mmol/L (3.5-5.0) Chloride Level 104 mmol/L (98-107) Carbon Dioxide Level 25 mmol/L (22-30) Blood Urea Nitrogen 17 mg/dl (9-21) Creatinine 0.70 mg/dl (0.66-1.25) Glomerular Filtration Rate Calc > 60.0 Random Glucose 164 mg/dl (75-110) Calcium Level 10.0 mg/dl (8.4-10.2) Magnesium Level 1.9 mg/dl (1.7-2.2) Total Bilirubin 0.6 mg/dl (0.2-1.3) Aspartate Amino Transf (AST/SGOT) 58 U/L (0-35) Alanine Aminotransferase (ALT/SGPT) 42 U/L (0-56) Alkaline Phosphatase 149 U/L (0-126) Troponin I < 0.012 ng/ml B-Type Natriuretic Peptide 461 pg/ml (0-100) Total Protein 8.0 g/dl (6.3-8.2) Albumin 4.5 g/dl (3.5-5.0) EKG/Imaging EKG Interpretation Irregular irregular rate consistent with atrial fibrillation. Ventricular rate of 87. QRS and QTc within normal limits. No significant ST or T-wave abnormalities. Monitor Interpretation: Atrial Fibrillation ED Course/Re-evaluation Clinical Indication for ER IV: IV Access ED Course 63-year-old male with history of CHF, atrial fibrillation status post ablation who presents with worsening shortness of breath. On arrival, patient is mildly hypoxic but otherwise hemodynamically stable. Physical exam is notable for JVD, peripheral edema, and bibasilar rales consistent with volume overload. Differential diagnosis includes but is not limited to CHF exacerbation, atrial fibrillation, ACS, pneumonia. Labs are notable for elevated BNP at 460 which is up from the patient's baseline. His overall physical exam is most consistent with hyperkalemia likely secondary to CHF exacerbation. He was given 40 mg of IV furosemide as he takes 20 mg of oral furosemide daily to initiate diuresis. He had a good response with greater than 1000 cc of urine output. Additionally, it appears that the patient is now back into atrial fibrillation. He is rate controlled. He is not currently on any anticoagulation. 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 Curry at the [facility] who is in agreement with diuresis and working on transferring him for direct admission as his care is currently there. I discussed with the admitting hospitalist Dr. Richard who has accepted the patient for admission. Patient will travel via ground ALS to the [facility] for ongoing management of his CHF and atrial fibrillation. Decision to Disposition Date: Apr 03, 2019 Decision to Disposition Time: 14:19 Depart Departure Latest Vital Signs Vital Signs Date Time Temp Pulse Resp B/P (MAP) Pulse Ox O2 Delivery O2 Flow Rate FiO2 04/03/19 14:10 86 17 93 04/03/19 14:00 126/93 (104) 04/03/19 10:42 2.0 04/03/19 10:30 97.9 Room Air Impression: Primary Impression: CHF exacerbation Additional Impression: New onset atrial flutter Condition: Improved Disposition: [facility]FER TO [facility] Problem Qualifiers TASIA KAMARA MD Apr 03, 2019 10:32
[2019-04-03] MEDS ORDERED: POTA99TA6 PO (10:45)
[2019-04-03 11:02] LABS: PLATELET COUNT, AUTOMATED 328 K/uL (150-450)
--- NOTE | 2019-04-03 11:09 | RADIOLOGY IMAGING REPORT ---
FAC[place] [facility] [place]IENT NAME: Elvis Mukherjee : 1955 MR: [id number] V: [id number] EXAM DATE: ORDERING PHYSICIAN: TASIA KAMARA TECHNOLOGIST: Location: [facility] [place] Patient: Elvis Mukherjee : 1955 Visit/Account:[id number] Date of Sevice: 04/03/2019 Exam type: CHEST SINGLE AP History: CHF; shortness of breath Comparison: February 25, 2018. Findings: There is mild interstitial prominence throughout the lungs. No evidence of focal infiltrates identif ied. No evidence of pleural effusions. The cardiac silhouette is normal in size. IMPRESSION: 1. Mild interstitial prominence of the lungs which may be related to mild pulmonary vascular congest ion or interstitial infiltrates. Report Dictated By: Hemalatha Rowland MD at 04/03/2019 10:58 AM Report E-Signed By: Hemalatha Rowland MD at 04/03/2019 11:00 AM WSN:[email or web address]
[2019-04-03] MEDS ORDERED: FUROSEMIDE 40 MG/4 ML VIAL IVP ONE (11:20)
--- NOTE | 2019-04-03 11:32 | EKG ---
FACILITY: [facility] - [place] PATIENT NAME: CHANDRAKANT ATKINSON : [id number] MR: [id number] V: [id number] EXAM DATE: ORDERING PHYSICIAN: TASIA KAMARA TECHNOLOGIST: [place] Test Reason : SOB Blood Pressure : / mmHG Vent. Rate : 087 BPM Atrial Rate : 375 BPM P-R Int : 000 ms QRS Dur : 090 ms QT Int : 342 ms P-R-T Axes : 000 069 024 degrees QTc Int : 411 ms Atrial fibrillation Abnormal ECG When compared with ECG of 25-FEB-2018 17:57, Atrial fibrillation has replaced Atrial flutter QT has shortened Confirmed by Manav Carson ([id number]) on 04/03/2019 7:26:08 PM Referred By: ANH Confirmed By:Manav Bowman
[2019-04-03 15:30] VITALS: BP 130/93
== END 2019-04-03 15:59 | disposition short-term general hospital (02) ==
LOC: ER 10:30
DX: I50.9 Heart failure, unspecified (principal); I48.92 Unspecified atrial flutter
CPT/HCPCS: 71045; 83735; 83880; 84484; 85025; 93005; 96374; 99285; J1940; 82040; 82247; 82310; 82374; 82435; 82565; 82947; 84075; 84132; 84155; 84295; 84450; 84460; 84520

== ENCOUNTER → 2019-04-03 | Outpatient (CLI) | payer OTHER ==
[~2019-04-03] MED LIST changes: +POTA99TA6 PO
== END ==
LOC: AMB 15:28
PROVIDERS: ATTEND Nurse Practitioner
DX: R06.00 Dyspnea, unspecified (principal); R53.1 Weakness; I50.9 Heart failure, unspecified
CPT/HCPCS: A0425; A0426